=== PATIENT | female | born 1980 | race Two or more races ===

== ENCOUNTER → 2024-09-01 | Outpatient (CLI) | payer BC, SELFPAY ==
[2024-09-01 16:42] LABS: Beta HCG,Quantitative < 1 mIU/mL (<5.0)
== END | disposition home or self-care (01) ==
LOC: SLDO 14:55
PROVIDERS: Referring Provider Physician Assistant Medical; Visit Provider Physician Assistant Medical
DX: B37.89 Other sites of candidiasis (principal); A59.01 Trichomonal vulvovaginitis; N76.0 Acute vaginitis; R10.2 Pelvic and perineal pain
CPT/HCPCS: 36415; 81514; 84702; 87086

== ENCOUNTER → 2024-09-18 | Outpatient (CLI) | payer BC, SELFPAY ==
[2024-09-17 13:55] LABS: HCG Qualitative,Urine Negative
--- NOTE | 2024-09-18 14:30 | XR_ITS ---
Examination: MRI bilateral breasts without intravenous contrast. MRI bilateral breasts with intravenous contrast Date and time: September 18, 2024 1548 hours INDICATIONS: Lump in the right breast, lump in the left breast, patient felt lump after implantation silicone implants July 2022 3:00 position TECHNIQUE AND FINDINGS: Bilateral breast MRI images pre and post 10 cc gadolinium Multiple cystic masses both breasts, the largest on the right side retroareolar 19 mm, the largest on the left side lateral measuring 26 mm No intracapsular or extracapsular breast implant rupture noted There is mild background breast enhancement The breasts exhibit heterogeneous signal intensity No solid suspicious mass lesion noted No axillary lymphadenopathy IMPRESSION: BI-RADS Category 0: Incomplete: Need additional imaging evaluation Bilateral breast sonography follow-up is needed to document multiple benign cysts and exclude any solid nodules and either breast Addendum will be added to this report when the [employer] CAD software is available for interpretation
== END | disposition home or self-care (01) ==
LOC: SMRI 14:13
PROVIDERS: PCP Family Medicine; Referring Provider Registered Nurse; Visit Provider Registered Nurse
DX: R92.8 Other abnormal and inconclusive findings on diagnostic imaging of breast (principal); Z98.82 Breast implant status; Z32.00 Encounter for pregnancy test, result unknown
CPT/HCPCS: 77049; 81025; A9579; C8908